=== PATIENT | female | born 1995 | race Caucasian/White ===

== ENCOUNTER → 2017-06-07 16:28 | Outpatient (CLI) | payer MEDICAID ==
[~2017-06-07 16:28] MED LIST: CLARITIN 10 MG10 MG PO; IBUPROFEN600 MG PO; PERCOCET 10/3251 TA1 PO
[2017-07-10 15:40] VITALS: BMI 31.9
== END | disposition home or self-care (01) ==
LOC: D.LDO 16:28
DX: O36.8130 Decreased fetal movements, third trimester, not applicable or unspecified (principal); Z3A.33 33 weeks gestation of pregnancy

== ENCOUNTER → 2017-07-06 13:57 | Outpatient (CLI) | payer MEDICAID ==
[2017-07-06 15:43] LABS: BASOPHILS 0.1 % (0-2); EOSINOPHILS 0.8 % (0-7); HEMATOCRIT 36.2 % (36.0-48.0); HEMOGLOBIN 11.6 g/dL (12-16); IMMATURE GRANULOCYTES 1.1 % (0-5); LYMPHOCYTES 21.4 % (15-50); MCH 27.5 pg (26.0-34.0); MCV 85.8 fL (80.0-100.0); MEAN PLATELET VOLUME 9.9 fL (7.4-10.4); MONOCYTES 6.2 % (2-11); NEUTROPHILS 70.4 % (40-80); PLATELET COUNT 265 10x3/uL (130-400); RBC 4.22 10x6/uL (4.00-5.40); RDW 13.9 % (11.5-14.5); WBC 9.9 10x3/uL (4.8-10.8)
[2017-07-06 16:10] LABS: ALBUMIN 2.8 g/dL (3.4-5.0); ALKALINE PHOSPHATASE 202 U/L (46-116); ALT (SGPT) 27 U/L (10-68); BILIRUBIN - DIRECT 0.11 mg/dL (0.00-0.30); BILIRUBIN - INDIRECT 0.32 mg/dL (0.00-1.00); BILIRUBIN - TOTAL 0.43 mg/dL (0.2-1.3); CALC OSMOLALITY 269 mosm/kg (275-300); CALCIUM 8.9 mg/dL (8.5-10.1); CARBON DIOXIDE 25.5 mmol/L (21.0-32.0); CHLORIDE - SERUM 102 mmol/L (98-107); CREATININE - SERUM 0.6 mg/dL (0.6-1.3); GLUCOSE 77 mg/dL (74-106); POTASSIUM - SERUM 4.2 mmol/L (3.5-5.1); PROTEIN - SERUM 6.8 g/dL (6.4-8.2); SODIUM 137 mmol/L (136-145); UREA NITROGEN 5 mg/dL (7-18); URIC ACID 3.8 mg/dL (2.6-7.2); eGFR NON AFRICAN AMERICAN > 90 mL/min (90-120)
[2017-07-07 17:26] LABS: PROTEIN - URINE 14.1 mg/dL (0.0-11.9)
[2017-07-10 15:40] VITALS: BMI 31.9
== END | disposition home or self-care (01) ==
LOC: D.LABREF 13:57 → D.LDO 13:57
PROVIDERS: Obstetrics & Gynecology
DX: Z34.93 Encounter for supervision of normal pregnancy, unspecified, third trimester (principal); Z3A.37 37 weeks gestation of pregnancy

== ENCOUNTER → 2017-07-07 16:39 | Outpatient (CLI) | payer MEDICAID ==
[2017-07-10 15:40] VITALS: BMI 31.9
== END | disposition home or self-care (01) ==
LOC: D.LDO 16:39
DX: O13.3 Gestational [pregnancy-induced] hypertension without significant proteinuria, third trimester (principal); Z3A.37 37 weeks gestation of pregnancy

== ENCOUNTER 2017-07-10 12:46 | Inpatient (IN) | payer MEDICAID ==
[~2017-07-10] VITALS: Ht 157.5 cm; Wt 78.9 kg
[2017-07-10] VITALS (13 sets, daily range): BP systolic 104–138; BP diastolic 55–77; Ht 157.5 cm; Wt 78.9 kg
[2017-07-10] MEDS ORDERED: CLARITIN 10 MG10 MG PO (15:36)
[2017-07-10 16:38] LABS: APPEARANCE CLEAR (CLEAR); BACTERIA MODERATE /hpf (NONE SEEN); BILIRUBIN NEGATIVE (NEGATIVE); COLOR YELLOW (YELLOW); EPITHELIAL CELLS 0-5 /hpf (0-5); GLUCOSE NEGATIVE (NEGATIVE); KETONE NEGATIVE (NEGATIVE); MUCUS >1+ /lpf (NONE SEEN); NITRITE NEGATIVE (NEGATIVE); PROTEIN NEGATIVE (NEGATIVE); WHITE CELLS - URINE 0-5 /hpf (0-5)
[2017-07-10 16:53] LABS: HEMATOCRIT 36.7 % (36.0-48.0); HEMOGLOBIN 11.6 g/dL (12-16); MCH 27.2 pg (26.0-34.0); MCHC 31.6 g/dL (31.0-37.0); MCV 85.9 fL (80.0-100.0); MEAN PLATELET VOLUME 10.1 fL (7.4-10.4); RBC 4.27 10x6/uL (4.00-5.40); WBC 10.5 10x3/uL (4.8-10.8)
--- NOTE | 2017-07-10 19:46 | NUR ---
baby born at 1927 to nursery with nursery nurse
--- NOTE | 2017-07-10 20:20 | NUR ---
DR QUESADA AT [facility], STATES THAT AT 0400 HE WANTS THE PATIENT TO HAVE HER ANDERSON CATHETER REMOVED LONG SHE IS TOLERATED PO AND IV MAY BE SALINE LOCKED. CONTINUE WITH TORADOL ORDER BUT CHANGE PAIN MEDICATION TO PERCOCET INSTEAD IF IV NARCOTICS
--- NOTE | 2017-07-10 20:29 | NUR ---
PATIENT RETURNED FROM SURGERY AT THIS TIME VIA BED. FUNDUS FIRM AT THE UMBILICUS, BLEEDING MODERATE WITH TWO SAMLL CLOTS NOTED ON THE PAD. PERICARE PERFORMED AND PAD CHANGED. VITALS SIGNS TAKEN WNL. INCISION WELL APPROXIAMATED AND GLUED, NO DRESSING. NO REDNESS OR SWELLING OR DRAINAGE NOTED. SCD BOOTS REMAIN IN PLACE. BREATH SOUNDS CLEAR, DEEP BREATH INITIATED AND INCENTIVE SPIROMETER AT BEDSIDE. ANDERSON CATHETER DRAINING, 300ML CLEAR YELLOW URINE EMPTIED AT THIS TIME. IV FLUIDS WITH 20UNITS PITOCIN INFUSING AT 125ML/HR PER MD ORDERS. IV SITE WITHOUT REDNESS OR SWELLING. PATIENT STATES THAT SHE IS IN A LITTLE BIT OF PAIN TO HER RIGHT ABDOMEN. BED LOCKED IN LOW POSITION, SIDE RAILS UPX2, CALL LOPEZ AND TRAY TABLE IN REACH. PATIENT HAS A CUP OF ICE AND HAS BEEN EATING IT IN PACU WITHOUT N/V.
--- NOTE | 2017-07-10 20:56 | NUR ---
PATIENT SLEEPING, EASILY AROUSED TO VERBAL. FUNDUS REMAINS FIRM,MIDLINE, SMALL BLEEDING NOTED. ANDERSON CATHTER DRAINING, 30 ML CLEAR YELLOW URINE NOTED IN UROMETER. SCD BOOTS REMAIN IN PLACE. ICE PACK REMAINS ON ABDOMEN. VS WNL. PT DENIES NEEDS AT THIS TIME. BED LOCKED IN LOW POSITION, CALL LOPEZ AND TRAY TABLE IN REACH.
--- NOTE | 2017-07-10 21:10 | NUR ---
PATIENT REPOSITIONED IN BED FOR COMFORT, COMPLAINING OF PAIN 6/10 TO HER ABDOMEN. TORADOL 30MG SLOW IVP GIVEN AT THIS TIME. FUNDUS REMAINS FIRM, MIDLINE, AT THE UMBILICUS. BLEEDING SCANT. SCD'S REMAIN IN PLACE. ICE REMAINS IN PLACE ON ABDOMEN. VS WNL. IV PATENT AND NON TENDER, INFUSING WITHOUT DIFFICULTY. BED LOCKED IN LOW POSITION, CALL LOPEZ AND TRAY TABLE IN REACH. PT DENIES OTHER NEEDS.
--- NOTE | 2017-07-10 21:29 | NUR ---
FUNDUS FIRM, MIDLINE, BLEEDING SCANT. PADS CHANGED. CALL LOPEZ AND TRAY TABLE IN REACH. BED LOCKED IN LOW POSITION. NO NEEDS IDENTIFIED AT THIS TIME.
--- NOTE | 2017-07-10 21:30 | NUR ---
PT RESTING QUIETLY WITH EYES CLOSED, ICE PACK REMAINS IN PLACE. NO NEEDS IDENTIFIED
--- NOTE | 2017-07-10 21:41 | NUR ---
PATIENT SLEEPING, EASILY AROUSED TO VERBAL. PAIN IS 3/10 AT THIS TIME. NO NEEDS IDENTIFIED.
--- NOTE | 2017-07-10 22:00 | NUR ---
APPLE JUICE PROVIDED AT THIS TIME PER PT REQUEST. PATIENT VISITING WITH FAMILY AT THIS TIME PAIN REMAINS 3/10. PT DENIES OTHER NEEDS AT THIS TIME. CALL LOPEZ AND TRAY TABLE IN REACH. BED LOCKED AND IN LOW POSITION. WILL CONTINUE TO MONITOR
--- NOTE | 2017-07-10 22:30 | NUR ---
PATIENT VISITING WITH FAMILY, PAIN REMAINS 3/10. INCISION REMAINS INTACT, NO REDNESS OR SWELLING NOTED. BLEEDING SMALL, ONE GRAPE SIZED CLOT NOTED. FUNDUS REMAINS FIRM, MIDLINE AT THE UMBILICUS, IV INFUSING PER ORDER WITHOUT INCIDENT. SCD BOOTS REMAIN IN PLACE.ANDERSON DRAINING TO GRAVITY. TRAY TABLE AND CALL LOPEZ IN REACH, BED LOCKED IN LOW POSITION. FAMILY REMAINS AT BEDSIDE.
--- NOTE | 2017-07-10 23:14 | NUR ---
PATIENT RESTING QUIETLY IN BED WITH . MOTHER AT BEDSIDE FOR ASSISTANCE. PT C/O PAIN 5/10, DEMEROL 50MG AND PHENERGAN 12.5 MG SLOW IVP AT THIS TIME OVER TEN MINUTES PER MD ORDERS. PLACED IN OPEN CRIB. ANDERSON CATHETER DRAINING TO GRAVITY, SCD BOOTS IN PLACE, BLEEDING SMALL, ONE PLUM SIZED CLOT NOTED ON PAD. PERICARE DONE AND PAD CHANGED.SHEET AND BLANKETS PROVIDED FOR MOTHER. BED LOCKED IN LOW POSITION, CALL LOPEZ AND TRAY TABLE IN REACH. WILL CONTINUE TO MONITOR.
[2017-07-11] VITALS (7 sets, daily range): BP systolic 108–119; BP diastolic 56–71
--- NOTE | 2017-07-11 00:30 | NUR ---
PATIENT RESTING QUIETLY IN BED, TURNED TO RIGHT SIDE AND PILLOW PLACED FOR COMFORT. SCD BOOTS REMAIN IN PLACE. PERIPAD CHANGED, BLEEDING SMALL. FUNDUS FIRM,MIDLINE AT THE UMBILICUS. ICE PACK REPLACED TO ABDOMEN, PT HAD REMOVED TO TAKE A BREAK. ICE CHIPS PROVIDED.
--- NOTE | 2017-07-11 00:38 | NUR ---
ANDERSON CATHETER NOTED TO ONLY AHVE 15ML CLEAR YELLOW URINE. ANDERSON MANIPULATED, END OF BED LOWERED, ANDERSON FLUSHED AND MANIPULATED AGAIN. FUNDUS RUBBED,MIDLINE, FIRM AT THE . DR. QUESADA PAGED DUE TO URINE OUTPUT OF 15ML THIS PAST HOUR.
--- NOTE | 2017-07-11 00:50 | NUR ---
DR QUESADA CALLED ON HIS CELL PHONE AND GIVEN REPORT ON URINE OUTPUT SINCE SURGERY. NEW ORDERS FOR A NORMAL SALINE BOLUS OF ONE LITER.
--- NOTE | 2017-07-11 00:51 | NUR ---
INITIATED NORMAL SALINE BOLUS OF 1000M@999ML/HR
--- NOTE | 2017-07-11 01:59 | NUR ---
IV BOLUS COMPLETED, 35ML CLEAR YELLOW URINE IN UROMETER AT THIS TIME.
--- NOTE | 2017-07-11 02:30 | NUR ---
PATIENT SLEEPING, ANDERSON CATHETER CHECKED AT THIS TIME. 75 ML CLEAR YELLOW URINE NOTED. BED LOCKED IN LOW POSITION, TRAY TABLE AND CALL LOPEZ IN REACH. MOTHER REMAINS AT BEDSIDE FOR ASSISTANCE.
--- NOTE | 2017-07-11 03:30 | NUR ---
PATIENT SLEEPING, EASILY AROUSED TO VERBAL. PT REQUESTING PAIN MEDICATION FOR 5/10 SHARP INCISIONAL PAIN. ANDERSON CATHETER WITH 75 ML CLEAR YELLOW URINE IN UROMETER. PATIENTS BED LOCKED IN LOW POSITION, CALL LOPZE AND TRAY TABLE IN REACH.
--- NOTE | 2017-07-11 03:50 | NUR ---
DEMEROL 50MG WITH PHENERGAN 12.5MG MIXED IN 20ML NS GIVEN SLOW IVP OVER TEN MINUTES AT THIS TIME PER MD ORDERS AND PT REQUEST.
--- NOTE | 2017-07-11 04:00 | NUR ---
PT ABLE TO DRINK APPLE JUICE AND EAT ICE CHIPS WITH NO N/V. ANDERSON CATHETER WITH 50ML CLEAR YELLOW URINE IN UROMETER. ANDERSON CATHETER REMOVED AT THIS TIME PER MD ORDERS AND IV SALINE LOCKED PER MD ORDERS.
--- NOTE | 2017-07-11 05:23 | NUR ---
toradol given per md orders.
--- NOTE | 2017-07-11 06:16 | NUR ---
called to room by patient at this time,states that she has to use the bathroom. assisted to bathroom at this time, voided 100ml urine, pericare done and pad and panties placed. pt back to bed, states that she feels like she is going to pass out. sitting on side of bed with cool rag to head, eating ice chips per request.
--- NOTE | 2017-07-11 06:55 | NUR ---
PATIENT REPORT TO AM SHIFT TO ASSUME PATIENT CARE.
--- NOTE | 2017-07-11 07:28 | NUR ---
RCVD PT FROM [facility] RN. PT SITTING UP IN BED WITH CLEAR LIQUID DIET MEAL TRAY SERVED. PT'S MOTHER IN ROOM FOR SUPPORT WITH IN OPEN CRIB AT BEDSIDE. PT REPORTS MILD PAIN, BUT STATES "IT'S TOLERABLE." BREATH SOUNDS CLEAR & UNLABORED X2, HR-RRR, PPP, BOWEL SOUNDS ACTIVE X4 AND PT REPORTS PASSING GAS. SL NOTED TO RT HAND WITH NO SIGNS OF ERYTHEMA OR EDEMA NOTED. SCD'S IN PLACE. ADV PT TO CALL WHEN NEEDING TO VOID NEXT. PT VERBALIZED UNDERSTANDING. ADV PT WILL ASSESS INCISION WHEN MEAL IS FINISHED. PT DENIES FURTHER NEEDS. BED LOW, WHEELS LOCKED, CL IN REACH, SIDE RAILS UP X2.
--- NOTE | 2017-07-11 08:50 | NUR ---
PT SITTING UP IN BED, HOB 45 DEGREES, RESP EVEN AND UNLABORED, DENIES NEED FOR PAIN MEDICATION, ICE PACK TO INCISION. INCISION CDI DERMABOND, NO REDNESS OR SWELLING. C/L IN EASY REACH, PT MOTHER HOLDING AT BEDSIDE.
--- NOTE | 2017-07-11 09:52 | NUR ---
PT RESTING IN LEFT LATERAL POSITION, EYES CLOSED ON ENTRY TO ROOM, ROUSES TO VERBAL STIMULATION. INFANT RESTING WITH EYES CLOSED IN ROLLING CRIB ADJACENT TO PT BED. C/L IN EASY REACH, DENIES NEEDS OR CONCERNS AT THIS TIME.
--- NOTE | 2017-07-11 10:26 | NUR ---
C/O INCISIONAL PAIN, PERCOCET [address] SIPS OF [address] COSTA PER PT REQUEST. RESP EVEN AND UNLABORED, LIGHTS DIMMED. C/L IN EASY REACH.
--- NOTE | 2017-07-11 10:33 | NUR ---
DR QUESADA TO PT ROOM, DISCUSSES POC TO INCLUDE GETTING UP OOB AND AMBULATING, PAIN CONTROL, AND CARE OF INCISION SITE. PT STATES UNDERSTANDING.
--- NOTE | 2017-07-11 11:24 | NUR ---
C/O CONTINUED PAIN, REPORTS PAIN NOW A 6 OUT OF 10, REQUESTING ADDITIONAL MEDICATION FOR PAIN. PRN MED GIVEN ORDERED.
--- NOTE | 2017-07-11 12:11 | NUR ---
PT ASSISTED TO BR TO VOID, VOIDED 400ML DARK YELLOW URINE TO SPECIPAN, INSTRUCTED ON ABDOMINAL SPLINTING, SMALL ABD PILLOW PROVIDED TO PT, FRESH ICE PACK TAKEN TO PT FOR USE ON INCISION PER PT REQUEST. INSTRUCTED TO AMBULATE IN ROOM AFTER LUNCH. LUNCH TRAY PROVIDED TO PT. PT STATES UNDERSTANDING OF ALL INSTRUCTIONS GIVEN.
--- NOTE | 2017-07-11 12:11 | NUR ---
THIS RN TO PT BEDSIDE WITH Candace ULLOA RN. PT ASSISTED TO BR PER THIS RN AND Candace ULLOA RN. EDU PT ON IMPORTANCE OF AMBULATION AND URINATING EVERY 2-3 HOURS. PT VERBALIZED UNDERSTANDING TO ALL. SMALL PILLOW PROVIDED TO BRACE ABD WITH. PT DENIES FURTHER NEEDS. FAMILY IN ROOM FEEDING AT THIS TIME.
--- NOTE | 2017-07-11 13:26 | NUR ---
PT DROWSY, STATES PAIN RELIEF MEASURES EFFECTIVE, DENIES NEED FOR FURTHER INTERVENTION, CONSUMED 75% LUNCH MEAL, RESP EVEN AND UNLABORED.
--- NOTE | 2017-07-11 14:37 | NUR ---
PT RESTING ON BACK WITH HOB 30 DEGREES. EYES CLOSED, RESP EVEN & UNLABORED. PT'S MOTHER IN ROOM TENDING TO INFANT, IN OPEN CRIB AT BEDSIDE. PT LEFT UNDISTURBED AT THIS TIME.
--- NOTE | 2017-07-11 15:04 | NUR ---
ASSISTED OOB TO BR TO VOID, REPORTS FEELING BETTER AFTER HAVING HAD A NAP. ENCOURAGED TO AMBULATE IN ROOM WHEN FINISHED, PT MOTHER IN ROOM HOLDING IN ARMS. NO DISTRESS NOTED AT THIS TIME.
--- NOTE | 2017-07-11 15:13 | NUR ---
PT AMB TO NURSE DESK. SLOW, BUT STEADY GAIT NOTED. PT REQUESTS & RECEIVES CUP OF ICE. PT REPORTS WILL TAKE SHOWER SOON. TOWELS PROVIDED. PT REPORTS "FEELING BETTER" AFTER NAP. DENIES FURTHER NEEDS AT THIS TIME.
--- NOTE | 2017-07-11 15:34 | NUR ---
RN TO PT BS TO BRING LINENS TO CHANGE BEDDING. PT NOTED TO BE SITTING UP ON SIDE OF BED WITH COOL RAGS. PALLOR NOTED IN SKIN TONE. PT REPORTS FEELING DIZZY. BP ASSESSED AND IS WNL FOR PT. PT ASSISTED BACK TO BED. HOB LOWERED. ADV PT NOT TO GET OUT OF BED PER SELF LONG DIZZINESS PERSISTS. PT VERBALIZED UNDERSTANDING AND DENIES FURTHER NEEDS AT THIS TIME.
--- NOTE | 2017-07-11 16:01 | NUR ---
PERCOCET 10/325 X1 TAB GIVEN FOR PAIN RATED 4/10. PT REPORTS WILL SHOWER SOON. SHOWER CHAIR PLACED IN SHOWER AND COVERED WITH A TOWEL. TOWEL PLACED ON FLOOR IN FRONT OF SHOWER. SL IN LT HAND COVERED AND TAPED TO KEEP DRY. ADV PT TO CALL OUT WHEN READY TO SHOWER AND WE WILL CHANGE BED LINENS. PT VERBALIZED UNDERSTANDING AND DENIES FURTHER NEEDS.
--- NOTE | 2017-07-11 16:35 | NUR ---
ASSISTED OOB TO BR FOR SHOWER, LINENS CHANGED, FRESH GOWN TO PT. C/L IN EASY REACH. PT MOTHER IN ROOM TO PROVIDE ASSISTANCE. NO OTHER NEEDS VOICED AT THIS TIME.
--- NOTE | 2017-07-11 16:50 | NUR ---
PT AMB IN [place] AFTER SHOWER. WRAP REMOVED FROM PIV SITE ON LT HAND. SL DRESSING INTACT. PT DENIES PAIN OR NEEDS AT THIS TIME.
--- NOTE | 2017-07-11 17:30 | NUR ---
BOTTLE TAKEN TO PT ROOM FOR PER PT REQUEST. PT SITTING UP IN BED WITHOUT C/O PAIN. NO NEEDS VOICED. WILL CONT TO MONITOR.
--- NOTE | 2017-07-11 18:29 | NUR ---
PT RESTING IN BED HOLDING IN ARMS, BONDING NOTED. PT MOTHER ALSO AT BS, RESP EVEN AND UNLABORED, NO NEEDS VOICED AT THIS TIME.
--- NOTE | 2017-07-11 19:08 | NUR ---
PATIENT LAYING IN BED, INFANT AT BEDSIDE IN OPEN CRIB. MOTHER CHANGING INFANTS DIAPER. PATIENTS INCISION WELL APPROXIAMATED, NO REDNESS OR SWELLING OR DISCHARGE NOTED. BLEEDING SMALL. PAD AND PANTIES IN PLACE. VS TAKEN, WNL. RESPIRATIONS EVEN AND NON LABORED. CALL LOPEZ AND TRAY TABLE IN REACH. BED LOCKED IN LOW POSITION. DENIES NEEDS AT THIS TIME, STATES PAIN IS 2/10.
--- NOTE | 2017-07-11 20:03 | NUR ---
PATIENT LAYING IN BED HOLDING INFANT. TORADOL GIVEN SLOW IVP AT THIS TIME PER MD ORDERS. FLUSHED WITH 10ML NS. PATIENT STATES THAT PAIN IS 5/10 TO HER INCISION. ICE WATER PROVIDED PER REQUEST, PT DENIES OTHER NEEDS AT THIS TIME.
--- NOTE | 2017-07-11 21:03 | NUR ---
PATIENT REQUESTING PAIN MEDICATION FOR 8/10 INCISIONAL PAIN. PERCOCET 10MG PO AT THIS TIME. PT PROVIDED WITH A CLEAN PAIR OF PANTIES AND ASSISTED TO BATHROOM. REMAINS IN OPEN CRIB AT BEDSIDE AND MOTHER REMAINS IN ROOM FOR ASSISTANCE.
--- NOTE | 2017-07-11 21:45 | NUR ---
PATIENT ATTEMPTING TO FEED . STATES THAT SHE DOESNT WANT TO WAKE UP AND EAT. INFANT ATE 3 HRS AGO AND CONSUMED AN ENTIRE BOTTLE. ASSURED PT THAT SHE COULD WAIT ANOTHER HOUR AND TRY AGAIN. PT VERBALIZED UNDERSTANDING.
--- NOTE | 2017-07-11 22:36 | NUR ---
PATIENT SITTING UP IN BED HOLDING INFANT. STATES THAT HER PAIN HAS GOTTEN BETTER, RATES IT 5/10. DENIES NEEDS AT THIS TIME. BED LOW IN LOCKED POSITION. CALL LOPEZ AND TRAY TABLE IN REACH. PT'S MOTHER REMAINS AT BEDSIDE FOR ASSISTANCE.
--- NOTE | 2017-07-12 00:40 | NUR ---
PATIENT LYING IN BED SLEEPING. RESPIRATIONS EVEN AND NON LABORED. NO SIGNS OR SYMPTOMS OF DISTRESS NOTED. MOTHER REMAINS AT BEDSIDE FOR ASSISTANCE. BED LOCKED IN LOW POSITION. CALL LOPEZ AND TRAY TABLE IN REACH. WILL CONTINUE TO MONITOR.
--- NOTE | 2017-07-12 02:30 | NUR ---
PATIENT SLEEPING AT THIS TIME. RESPIRATIONS EVEN AND NON LABORED, AUDIBLE SNORING NOTED. NO SIGNS OR SYMPTOMS OR DISTRESS. MOTHER REMAINS IN ROOM FOR ASSISTANCE. BED LOCKED IN LOW POSITION, CALL LOPEZ AND TRAY TABLE IN REACH. WILL CONTINUE TO MONITOR.
[2017-07-12 03:16] VITALS: BP 113/66
--- NOTE | 2017-07-12 03:16 | NUR ---
PATIENT SLEEPING WITH AUDIBLE SNORING. EASILY AROUSED TO VERBAL AND VS TAKEN. VS WNL. PATIENT DENIES NEEDS AT THIS TIME. BED LOCKED IN LOW POSITION. SANCHEZ LOPEZ AND TRAY TABLE IN REACH. MOTHER REMAINS AT BEDSIDE FOR ASSISTANCE.
--- NOTE | 2017-07-12 05:30 | NUR ---
INFANT TO ROOM VIA OPEN CRIB. PATIENT RESTING IN BED WITH EYES CLOSED, AUDIBLE SNORING NOTED. PATIENTS MOTHER WOKE UPON ENTERING ROOM. INFORMED HER THAT BABY NEEDED TO BE FED AT 0730 AND THAT THE BOTTLE IS IN THE BED. MOTHER VERBALIZES UNDERSTANDING. NO SIGNS OR SYMPTOMS OF DISTRESS IN PATIENT, WILL CONTINUE TO MONITOR.
[2017-07-12 06:12] LABS: RAPID PLASMA REAGIN Non Reactive (Non Reactive)
--- NOTE | 2017-07-12 06:24 | NUR ---
PATIENT AWAKE, TORADOL 30MG GIVEN SLOW IVP AT THIS TIME FOR 5/10 INCISIONAL PAIN. FRESH ICE PACK PLACED TO INCISION. PT DENIES OTHER NEEDS. BED LOCKED IN LOW POSITION, CALL LOPEZ AND TRAY TABLE IN REACH.
--- NOTE | 2017-07-12 06:48 | NUR ---
PATIENT REPORT TO AM SHIFT TO ASSUME PATIENT CARE.
[2017-07-12 07:46] VITALS: BP 123/77
--- NOTE | 2017-07-12 07:46 | NUR ---
ROUNDS MADE. PT SITTING UP IN BED WITH INFANT UP IN ARMS BONDING. PT RATES PAIN 5/10 IN ABD DESCRIBED ACHING AT INCISION SITE. BREATH SOUNDS CLEAR & UNLABORED X2. HR-RRR, PPP, BOWEL SOUNDS ACTIVE X4. FUNDUS FIRM AND BELOW UMBILICUS. BLI C/D/I WITH DERMABOND, NO ERYTHEMA NOTED TO SITE. SL NOTED TO RT HAND WITH NO ERYTHEMA OR EDEMA NOTED TO SITE, DRESSING C/D/I. PT REPORTS SMALL LOCHIA RUBRA WHEN VOIDING, NO CLOTS. NO EDEMA NOTED TO BLE. SCD'S OFF AT THIS TIME. PT REPORTS AMB IN ROOM OFTEN. ENCOURAGED TO AMB IN [place] X2 TODAY. PT IS AGREEABLE AND VERBALIZES UNDERSTANDING. DENIES FURTHER NEEDS AT THIS TIME. MEAL TRAY ON BEDSIDE TABLE. WILL CONT POC. BED LOW, WHEELS LOCKED, CL IN REACH, SIDE RAILS UP X2.
--- NOTE | 2017-07-12 07:54 | NUR ---
PERCOCET 10/325MG X1 TAB GIVEN PER PT REQUEST FOR PAIN RATED 5/10 IN ABD AT THIS TIME. PT DENIES FURTHER NEEDS. PT PLACED IN OPEN CRIB AT BEDSIDE PER PT'S MOTHER. AT THIS TIME.
--- NOTE | 2017-07-12 08:39 | NUR ---
PAIN REASSESSMENT COMPLETE. PT RATES PAIN 5/10 WITH NO RELIEF WITH MEDICATION. PT DENIES FURTHER NEEDS FOR MEDICATION AT THIS TIME STATING "IT'S OK RIGHT NOW. IT JUST HURTS MORE IF I MOVE." ADV PT TO AMB THIS AM IN ORDER TO HELP EASE STIFFNESS. PT VERBALIZED UNDERSTANDING AND DENIES FURTHER NEEDS.
--- NOTE | 2017-07-12 08:50 | NUR ---
DR FRANCOIS AT NURSE DESK. V/O RCVD FOR PT D/C THIS AM WITH SPECIFICATIONS THAT PT MAY D/C HOME WHEN DESIRED. IT DOES NOT HAVE TO BE 48 HRS POST OP. PRESCRIPTIONS PROVIDED AT THIS TIME.
[2017-07-12] MEDS ORDERED: PERCOCET 10/3251 TA1 PO (09:02)
[2017-07-12] MEDS ORDERED: IBUPROFEN600 MG PO (09:02)
--- NOTE | 2017-07-12 09:43 | NUR ---
TDAP GIVEN PER ORDERS IN LT DELTOID. PT TOLERATED WELL. BANDAID PLACED OVER SITE. D/C INST EXPLAINED, SIGNED, AND WITNESSED PER THIS RN. PT OFFERS NO QUESTIONS OR CONCERNS. PT WILL WAIT FOR FOB TO RETURN TO SIGN PATERNITY AFFIDAVIT. PT DENIES FURTHER NEEDS. WILL CALL WHEN READY FOR W/C.
--- NOTE | 2017-07-12 11:48 | NUR ---
SL FLUSHED AND PATENT. 30MG TORADOL GIVEN PER ORDERS. PT TOLERATED WELL. PIV FLUSHED AFTER MED ADMINISTRATION. SL D/C'D WITH CATH TIP INTACT. PRESSURE APPLIED TO SITE. BANDAID PLACED OVER SITE. WILL CALL FOR W/C WH[place]NEY.
--- NOTE | 2017-07-12 12:01 | NUR ---
PT OFF UNIT VIA W/C PER VOLUNTEER WITH FAMILY MEMBERS.
--- NOTE | 2017-07-27 08:09 | OP ---
PATIENT NAME: MONTEZ ROBERTSON MEDICAL RECORD: [id number] :97 LOCATION:[id number] ADMISSION DATE:07/10/17 SURGEON: JASSI QUESADA MD DATE OF OPERATION: 07/10/2017 PREOPERATIVE DIAGNOSES: 1. at term. 2. Oligohydramnios. 3. Breech presentation. POSTOPERATIVE DIAGNOSES: 1. at term. 2. Oligohydramnios. 3. Breech presentation. PROCEDURE: Primary low transverse section. SURGEON: Jassi Quesada MD ANESTHESIOLOGIST: Gualberto Vance MD ANESTHESIA: Spinal. FINDINGS: Viable female infant, valerie breech presentation, Apgars were 8 and 9, weight 7 pounds 1 ounce. Uterus, tubes, and ovaries unremarkable. SPECIMEN REMOVED: Placenta. SPECIMENS DISPOSITION: Pathology. ESTIMATED BLOOD LOSS: 700 cc. FLUIDS: 1 liter lactated Ringer's. URINE OUTPUT: 150 cc clear urine. COMPLICATIONS: None. DRAINS: Ruano to gravity. INDICATIONS: The patient is a 21-year-old female with marginal fluid, who presents to labor and delivery for testing. NST is reactive, however, her MIREYA shows fluid less than 5 cm. The patient is consented for low transverse section given persistent breech presentation. DESCRIPTION OF PROCEDURE: After informed consent was assured, the patient was taken to the operating room, anesthetic was obtained. The patient was placed in a leftward lateral tilt and prepped and draped in the usual sterile fashion. Incisions made in the lower abdomen and the abdomen was entered using the Pelosi technique. A ring retractor was now inserted and tightened. A bladder blade was inserted and low transverse hysterotomy was performed after development of the bladder flap. was delivered onto the abdomen atraumatically using standard breech extraction. The infant's cord was doubly clamped and cut and the infant was passed to the awaiting attendant. Placenta was delivered via Crede maneuver. Uterus exteriorized, cleared of all clot and debris and then OPERATIVE REPORT [id number] MONTEZ ROBERTSON returned to the abdomen. The uterus was closed in a running locked fashion with chromic stitch. The pelvis was irrigated and the irrigant removed. The ring is now removed and the rectus bellies were approximated. Fascia was closed with a running stitch of PDS. Subcutaneous tissues were irrigated, bleeding vessels cauterized, and the skin reapproximated. Sponge, lap, and needle count is correct times 2 at the close of this procedure. The patient will be recovered on labor and delivery. TRANSINT:[id number] Voice Confirmation ID: [id number] DOCUMENT ID: [id number] JASSI QUESADA MD at 0809 CC: [id number] DICTATION DATE: 07/25/17 1607 PROCESS OPERATOR: 07/25/17 1628 DIS IN 07/12/[address] [id number]
--- NOTE | 2017-07-27 08:09 | DS ---
PATIENT:MONTEZ ROBERTSON :97 MEDICAL RECORD: [id number] DISCHARGE SUMMARY ADMISSION DATE: 07/10/17 DISCHARGE DATE: 07/12/17 DATE OF ADMISSION: 07/10/2017 DATE OF DISCHARGE: 07/12/2017 ADMISSION DIAGNOSES: 1. Oligohydramnios. 2. Breech presentation. 3. at term. DISCHARGE DIAGNOSIS: 1. Oligohydramnios. 2. Breech presentation. 3. at term. PROCEDURE PERFORMED WHILE HOSPITALIZED: Primary low transverse section. HISTORY OF PRESENT ILLNESS: See the H&P in the chart. SUMMARY OF HOSPITALIZATION: The patient was admitted and underwent primary section. By postoperative day #2, she was tolerating regular diet and voiding without difficulty. The patient has been given standard precautions and will receive Percocet for pain medication. The patient has been instructed to follow up in 2 weeks at [facility] with Dr. Strong. TRANSINT:[id number] Voice Confirmation ID: [id number] DOCUMENT ID: [id number] NIKOS STRONG MD at 0809 CC: [id number] DICTATION DATE: 07/25/17 1608 VISUAL MERCHANDISE MANAGER: 07/26/17 0808 DIS IN 07/12/17 [id number] [place] [address]
== END 2017-07-12 12:01 | disposition home or self-care (01) | DRG 765 ==
LOC: D.LDO 12:46 → D.LD 15:14
PROVIDERS: ADMIT Obstetrics & Gynecology
PROC: 10D00Z1 Extraction of Products of Conception, Low, Open Approach (ICD-10-PCS; principal; 2017-07-10 19:00)
DX: O32.1XX0 Maternal care for breech presentation, not applicable or unspecified (principal); O41.03X0 Oligohydramnios, third trimester, not applicable or unspecified; Z3A.38 38 weeks gestation of pregnancy; Z37.0 Single live birth